=== PATIENT | male | born 1970 | race Caucasian/White ===

== ENCOUNTER 2019-04-21 22:28 | Emergency (ER) | payer MEDICAID, OTHER ==
[~2019-04-21] VITALS: Ht 165.1 cm; Wt 75.2 kg
[2019-04-21 22:54] VITALS: Ht 165.1 cm; Wt 75.2 kg
[2019-04-21] MEDS ORDERED: DICYCLOMINE 10 MG CAP PO ONE (23:30)
[2019-04-22] MEDS ORDERED: POTASSIUM CHLORIDE (SR) 20 MEQ TAB PO ONE (02:22)
[2019-04-22 02:50] VITALS: BP 135/82; PULSE 82; RESP 18
--- NOTE | 2019-04-22 03:10 | ERD ---
ER Documentation Chief Complaint Chief Complaint abdominal pain/blood in stool x 1 week HPI During the patient's encounter translation services were utilized Language: [place] Source: In person 48-year-old male no significant past medical history presents with approximately 1 month of intermittent abdominal cramping. Over the last several days patient has noted some blood-streaked stool. He denies any hematemesis or melena. He denies any history of peptic ulcer disease. His cramping abdominal discomfort is noted to be moderate. He has not had a colonoscopy and does not follow-up with a primary care physician on a regular basis. ROS All systems reviewed and are negative except as per history of present illness. Allergies Allergies: Coded Allergies: No Known Drug Allergies (Verified Allergy, Unknown, 04/21/19) PMhx/Soc Medical and Surgical Hx: pt denies Medical Hx, pt denies Surgical Hx Hx Alcohol Use: No Hx Substance Use: No Hx Tobacco Use: No Smoking Status: Never smoker FmHx Family History: No diabetes Physical Exam Vitals Vital Signs Date Temp Pulse Resp B/P (MAP) Pulse Ox O2 O2 Flow FiO2 Time Delivery Rate 04/22/19 98.2 82 18 135/82 98 Room Air 02:50 (99) 04/21/19 98.2 80 18 130/80 98 Room Air 23:10 (97) 04/21/19 98.2 82 18 134/78 97 22:54 (96) Physical Exam General: Well developed, well nourished, no acute distress Head: Normocephalic, atraumatic. Eyes: Pupils equally reactive, EOM intact ENT: Moist mucous membranes Neck: Supple, no lymphadenopathy Respiratory: Lungs clear bilaterally, no distress Cardiovascular: RRR, no murmurs, rubs, or gallops Abdominal: Soft, non-tender, non-distended, no peritoneal signs : No external/internal hemorrhoids. Normal prostate. MIGUEL without melena MSK: No edema, no unilateral swelling, 5/5 strength Neurologic: Alert and oriented, moving all extremities, normal speech, no focal weakness, no cerebellar signs Skin: No rash Psych: Normal mood Result Diagram: 04/22/1911804/22/19118 Results 24 hrs Laboratory Tests Test 04/22/19 01:19 White Blood Count 7.3 10^3/ul Red Blood Count 4.75 10^6/ul Hemoglobin 14.8 g/dl Hematocrit 44.2 % Mean Corpuscular Volume 93.1 fl Mean Corpuscular Hemoglobin 31.2 pg Mean Corpuscular Hemoglobin Concent 33.5 g/dl Red Cell Distribution Width 13.4 % Platelet Count 289 10^3/UL Mean Platelet Volume 9.4 fl Immature Granulocytes % 0.100 % Neutrophils % 41.4 % Lymphocytes % 48.7 % Monocytes % 7.3 % Eosinophils % 2.1 % Basophils % 0.4 % Nucleated Red Blood Cells % 0.0 /100WBC Immature Granulocytes # 0.010 10^3/ul Neutrophils # 3.0 10^3/ul Lymphocytes # 3.5 10^3/ul Monocytes # 0.5 10^3/ul Eosinophils # 0.2 10^3/ul Basophils # 0.0 10^3/ul Nucleated Red Blood Cells # 0.0 10^3/ul Urine Color STRAW Urine Clarity CLEAR Urine pH 5.0 Urine Specific [place] 1.014 Urine Ketones NEGATIVE mg/dL Urine Nitrite NEGATIVE mg/dL Urine Bilirubin NEGATIVE mg/dL Urine Urobilinogen NEGATIVE mg/dL Urine Leukocyte Esterase NEGATIVE [place]/ul Urine Hemoglobin NEGATIVE mg/dL Urine Glucose NEGATIVE mg/dL Urine Total Protein NEGATIVE mg/dl Sodium Level 143 mmol/L Potassium Level 2.7 mmol/L Chloride Level 119 mmol/L Carbon Dioxide Level 19 mmol/L Anion Gap 5 Blood Urea Nitrogen 14 mg/dl Creatinine 0.59 mg/dl Est Glomerular Filtrat Rate mL/min > 60 mL/min Glucose Level 69 mg/dl Calcium Level 6.1 mg/dl Total Bilirubin 0.3 mg/dl Direct Bilirubin 0.00 mg/dl Indirect Bilirubin 0.3 mg/dl Aspartate Amino Transf (AST/SGOT) 25 IU/L Alanine Aminotransferase (ALT/SGPT) 36 IU/L Alkaline Phosphatase 47 IU/L Total Protein 5.0 g/dl Albumin 2.6 g/dl Globulin 2.40 g/dl Albumin/Globulin Ratio 1.08 Lipase 71 U/L Current Medications Medications Dose Sig/Damion Start Time Status Last (Trade) Ordered Route PRN Stop Time Admin Dose Reason Admin Dicyclomine 10 mg ONCE ONCE 04/21/19 DC 04/21/19 HCl PO 23:30 04/21/19 23:33 (Bentyl) 23:31 Potassium 40 meq ONCE ONCE 04/22/19 DC 04/22/19 Chloride PO 02:22 04/22/19 02:41 (Klor-Con 20) 02:23 Procedures/MDM EKG, MONITORS, & DIAGNOSTIC IMAGING: ct IMPRESSION: Possible mild urinary bladder wall thickening. Although this may simply relate to urinary bladder underdistension, cystitis cannot be excluded. Correlation with urinalysis and CBC is recommended. No obstructive uropathy or urinary stone. Normal appendix. Small fat-containing right inguinal hernia. LAB INTERPRETATION: I reviewed the laboratory testing and it shows mild dehydration, hypokalemia MEDICAL DECISION MAKING: Patient presents with blood streaks stools, cramping abdominal pain. He also notes some mild diarrhea. Patient has no signs or symptoms concerning for infectious diarrhea or bacterial diarrhea. CT of the abdomen pelvis to rule out mass. The patient needs a colonoscopy. Given the subacute nature patient will likely be stable for outpatient management with close GI follow-up. ER COURSE: * Laboratory testing does show mild dehydration. Possible viral diarrheal illness. No indication for antibiotics. Oral potassium replacement initiated. * Hemoglobin stable. The patient can be safely discharged with close primary care follow-up. Outpatient GI referral recommended. CONSULTATION: [None] DISPOSITION PLAN: The patient does not have an identifiable emergent medical condition that warrants inpatient hospitalization at this time. The patient is deemed safe for discharge with outpatient follow-up. We discussed follow up with the patient's primary care doctor within 24 to 48 hours as needed. We also discussed return to the emergency room for worsening symptoms or worsening condition. Outpatient referral: Gastroenterology Discharge Medications: None required Departure Diagnosis: Primary Impression: Rectal bleeding Additional Impressions: Hypokalemia Dehydration, mild Condition: Stable Patient Instructions: Rectal Bleed, Stable Referrals: HILDA AMOS MD, [facility] () Usted se pastor hecho un examen mdico de control que le indica que no est en aries condicin que requiera tratamiento urgente en el Departamento de Emergencia. Un estudio ms profundo y el tratamiento de jackson condicin pueden esperar sin ningn riesgo hasta que usted sea atendida/o en el consultorio de jackson mdico o aries clnica. Es responsabilidad suya arreglar aries anisa para el seguimiento del lisbeth. MANEJO DE CONDICIONES NO URGENTES EN EL FUTURO 1) Si usted tiene un mdico de atencin primaria: Usted debera llamar a jackson mdico de atencin primaria antes de venir al departamento de emergencia. Despus de las horas de consultorio, jackson doctor o jackson asociado/a est disponible por telfono. El mdico o enfermero de gianna en el servicio telefnico puede asesorarle por mikaela medio para atender el problema, o lisbeth contrario se puede programar aries anisa. 2) Si usted no tiene un mdico de atencin primaria: Llame al mdico o clnica de referencia que aparece abajo kush las horas de consultorio para hacer aries anisa para que le vean. CLINICAS: [facility] [phone] [facility] [phone] [facility] [facility] [phone] [address] [facility]. [facility] [phone] [address] [facility] [place] [phone] [facility]. [phone] [address] [facility]. [facility] () Usted se pastor hecho un examen mdico de control que le indica que no est en aries condicin que requiera tratamiento urgente en el Departamento de Emergencia. Un estudio ms profundo y el tratamiento de jackson condicin pueden esperar sin ningn riesgo hasta que usted sea atendida/o en el consultorio de jackson mdico o aries clnica. Es responsabilidad suya arreglar aries anisa para el seguimiento del lisbeth. MANEJO DE CONDICIONES NO URGENTES EN EL FUTURO 1) Si usted tiene un mdico de atencin primaria: Usted debera llamar a jackson mdico de atencin primaria antes de venir al departamento de emergencia. Despus de las horas de consultorio, jackson doctor o jackson asociado/a est disponible por telfono. El mdico o enfermero de gianna en el servicio telefnico puede asesorarle por mikaela medio para atender el problema, o lisbeth contrario se puede programar aries anisa. 2) Si usted no tiene un mdico de atencin primaria: Llame al mdico o condado institucions de referencia que aparece abajo kush las horas de consultorio para hacer aries anisa para que le vean. SI USTED NO PUEDE PAGAR PARA MARCIA UN MEDICO puede ir a: [facility] [address] [place] [address] [facility] [address] [place] [address] [facility] [address] [place] [address] [address] [facility] [address] [place], [place] [id number] Additional Instructions: Llame al doctor nombrado abajo (Referral Sources) MAANA y maximo aries ANISA PARA DENTRO DE ARIES SEMANA. Dgale a la secretaria que nosotros le instruimos hacer esta anisa.Avise o llame si jackson condicin se empeora antes de la anisa. FRANCESCA JIMENES MD Apr 22, 2019 03:10
== END 2019-04-22 02:51 | disposition home or self-care (01) ==
LOC: E/R 22:28
DX: K62.5 Hemorrhage of anus and rectum (principal); E87.6 Hypokalemia; E86.0 Dehydration
CPT/HCPCS: 36415; 74176; 80053; 81003; 83690; 85025; Z7502; Z7610